=== PATIENT | male | born 1960 | race Caucasian/White ===

== ENCOUNTER 2018-02-20 18:54 | Inpatient (IN) | payer BC ==
--- NOTE | 2018-02-20 19:42 | EDM.PDOC ---
ED HPI GENERAL MEDICAL PROBLEM - General Chief Complaint: Gastrointestinal Problem Stated Complaint: RECTAL BLEEDING Time Seen by Provider: 02/20/18 19:41 Source of Information: Reports: Patient History Limitations: Reports: No Limitations - History of Present Illness INITIAL COMMENTS - FREE TEXT/NARRATIVE: HISTORY AND PHYSICAL: History of present illness: 57-year-old male presenting to the emergency department with chief complaint of bright red blood per rectum 1 day. Patient states that he had some lower abdominal pain last evening around midnight. States that it felt like gas. Then this morning he did have a large bowel movement that was accompanied by a large amount of bright red blood. Bowel movement was not painful. He has had some associated nausea with one episode of vomiting. No blood in vomitus. He has also had diarrhea. Patient states he did have a colonoscopy approximately [address] Virgen. States that they did see some polyps but they were not extracted or worrisome as per Dr. Virgen. Patient has a history of hemorrhoids but states that this is not similar. Patient denies excessive alcohol intake. Patient currently denies any chest pain, palpitations, shortness breath, syncopal episodes, or focal neurologic deficits. -2047 CBC showed mild leukocytosis of 13,000, CMP unremarkable, Hemoccult was positive, H. pylori was positive as well. Lactate unremarkable. Urine and CT abdomen pending. Patient was having significant pain suprapubic. 1 mg IV Dilaudid relieved this. -[address] of the abdomen did show a segmental colitis involving the splenic flexure to the proximal sigmoid colon. It was suggested that it is getting decayed and ischemic colitis or perhaps a segmental infectious colitis. I did call Dr. Lin, on-call surgeon, he breathed on the patient and stated that this is most likely an infectious process and he will consult on the patient tomorrow from medicine. I talked to Dr. Yeung, hospitalist, who accepts the patient. I did start 400 mg of Cipro IV and 500 mg Flagyl IV. Review of systems: As per history of present illness and below otherwise all systems reviewed and negative. Past medical history: As per history of present illness and as reviewed below otherwise noncontributory. Surgical history: As per history of present illness and as reviewed below otherwise noncontributory. Social history: No reported history of drug or alcohol abuse. Family history: As per history of present illness and as reviewed below otherwise noncontributory. Physical exam: HEENT: Atraumatic, normocephalic, pupils reactive, negative for conjunctival pallor or scleral icterus, mucous membranes moist, throat clear, neck supple, nontender, trachea midline. Lungs: Clear to auscultation, breath sounds equal bilaterally, chest nontender. Heart: S1S2, regular, negative for clicks, rubs, or JVD. Abdomen: Soft, nondistended, Tender to palpation suprapubic with no radiation . Negative for masses or hepatosplenomegaly. Negative for costovertebral tenderness. Pelvis: Stable nontender. Genitourinary: Deferred. Rectal: With proctoscope I did visualize some internal hemorrhoids that were not bleeding. There was mild bright red blood in the rectal vault. No abnormal findings on prostate exam. Extremities: Atraumatic, negative for cords or calf pain. Neurovascular unremarkable. Neuro: Awake, alert, oriented. Cranial nerves II through XII unremarkable. Cerebellum unremarkable. Motor and sensory unremarkable throughout. Exam nonfocal. Diagnostics: CBC, CMP, Hemoccult, CT abdomen and pelvis, H. pylori, UA/UC, lactate, blood culture x2 Therapeutics: 1 L normal saline, 80 mg Protonix IV, 1 milligram Dilaudid IV 2 Impression: Suspect infectious colitis Bright red blood per rectum Helicobacter pylori infection Plan: See H&P. Patient was accepted by hospital service Dr. Yeung with Dr. Lin surgery consultation. Of note patient was positive for heel Kobacher pylori as well and will need this treated. Lower Abdominal Pain Score (Numeric/FACES): 3 - Related Data Allergies Allergy/AdvReac Type Severity Reaction Status Date / Time No Known Allergies Allergy Verified 02/20/18 19:09 Home Meds: Home Meds . [No Known Home Meds] 02/20/18 [History] Past Medical History - Infectious Disease History Infectious Disease History: Reports: Chicken Pox, Measles - Past Surgical History Musculoskeletal Surgical History: Reports: Other (See Below) Other Musculoskeletal Surgeries/Procedures:: back Social & Family History - Family History Family Medical History: Noncontributory - Tobacco Use Smoking Status *Q: Former Smoker Used Tobacco, but Quit: Yes Month/Year Tobacco Last Used: 09/1987 - Caffeine Use Caffeine Use: Reports: Coffee - Recreational Drug Use Recreational Drug Use: No ED ROS GENERAL - Review of Systems Review Of Systems: ROS reveals no pertinent complaints other than HPI. ED EXAM, GENERAL - Physical Exam Exam: See Below Course - Vital Signs Last Recorded V/S: Last Vital Signs Temp 99.0 F 02/20/18 19:11 Pulse 65 02/20/18 21:14 Resp 14 02/20/18 21:14 BP 150/82 H 02/20/18 21:14 Pulse Ox 98 02/20/18 21:14 - Orders/Labs/Meds Orders: Active Orders 24 hr Category Date Time Status Abdomen Pelvis w Cont [CT] Stat Exams 02/20/18 19:49 Taken CULTURE BLOOD [BC] Stat Lab 02/20/18 20:27 Received CULTURE BLOOD [BC] Stat Lab 02/20/18 20:46 Received CULTURE URINE [RM] Stat Lab 02/20/18 20:42 Ordered UA W/MICROSCOPIC [URIN] Stat Lab 02/20/18 20:42 Ordered Ciprofloxacin in D5W [Cipro in D5W 400 MG/200 ML] 400 Med 02/20/18 22:00 Ordered mg Premix Bag 1 bag IV Q12H HYDROmorphone [Dilaudid] Med 02/20/18 22:00 Once 1 mg IVPUSH ONETIME ONE metroNIDAZOLE/Normal Saline [Flagyl 500 MG in NS 100 ML Med 02/21/18 00:00 Ordered ] 500 mg Premix Bag 1 bag IV QID Blood Culture x2 Reflex Set [OM.PC] Stat Oth 02/20/18 20:14 Ordered Medication Orders Ciprofloxacin/Dextrose 400 mg/ (Premix) 200 mls @ 200 mls/hr IV Q12H KETURAH Metronidazole 500 mg/ Premix 100 mls @ 100 mls/hr IV QID [facility] Labs: Laboratory Tests 02/20/18 02/20/18 02/20/18 Range/Units 19:58 19:58 19:58 WBC 12.95 H (4.0-11.0) K/uL RBC 5.49 (4.50-5.90) M/uL Hgb 17.2 H (13.0-17.0) g/dL Hct 49.1 (38.0-50.0) % MCV 89.4 (80.0-98.0) fL MCH 31.3 (27.0-32.0) pg MCHC 35.0 (31.0-37.0) g/dL RDW Std Deviation 44.7 (28.0-62.0) fl RDW Coeff of Sia 14 (11.0-15.0) % Plt Count 215 (150-400) K/uL MPV 10.00 (7.40-12.00) fL Neut % (Auto) 80.1 H (48.0-80.0) % Lymph % (Auto) 13.7 L (16.0-40.0) % [place] % (Auto) 6.0 (0.0-15.0) % Eos % (Auto) 0.1 (0.0-7.0) % Baso % (Auto) 0.1 (0.0-1.5) % Neut # (Auto) 10.4 H (1.4-5.7) K/uL Lymph # (Auto) 1.8 (0.6-2.4) K/uL [place] # (Auto) 0.8 (0.0-0.8) K/uL Eos # (Auto) 0.0 (0.0-0.7) K/uL Baso # (Auto) 0.0 (0.0-0.1) K/uL Nucleated RBC % 0.0 /100WBC Nucleated RBCs # 0 K/uL Lactate (0.20-2.00) mmol/L Sodium 138 (136-148) mmol/L Potassium 3.7 (3.5-5.1) mmol/L Chloride 103 (98-107) mmol/L Carbon Dioxide 23.4 (21.0-32.0) mmol/L BUN 19 H (7.0-18.0) mg/dL Creatinine 1.1 (0.8-1.3) mg/dL Est Cr Clr Drug Dosing 72.31 mL/min Estimated GFR (MDRD) > 60.0 ml/min Glucose 128 H (74-106) mg/dL Calcium 9.0 (8.5-10.1) mg/dL Total Bilirubin 0.6 (0.2-1.0) mg/dL AST 17 (15-37) IU/L ALT 36 (14-63) IU/L Alkaline Phosphatase 62 (46-116) U/L Total Protein 7.6 (6.4-8.2) g/dL Albumin 4.0 (3.4-5.0) g/dL Globulin 3.6 H (2.0-3.5) g/dL Albumin/Globulin Ratio 1.1 L (1.3-2.8) Urine Color Urine Appearance Urine pH (5.0-8.0) Ur Specific [place] (1.001-1.035) Urine Protein (NEGATIVE) mg/dL Urine Glucose (UA) (NEGATIVE) mg/dL Urine Ketones (NEGATIVE) mg/dL Urine Occult Blood (NEGATIVE) Urine Nitrite (NEGATIVE) Urine Bilirubin (NEGATIVE) Urine Urobilinogen (<2.0) EU/dL Ur Leukocyte Esterase (NEGATIVE) Urine RBC (0-2/HPF) Urine WBC (0-5/HPF) Ur Epithelial Cells (NONE-FEW) Urine Bacteria (NEGATIVE) Urine Mucus (NONE-MOD) H. pylori IgG Antibody POSITIVE H (NEG) 02/20/18 02/20/18 Range/Units 19:58 20:42 WBC (4.0-11.0) K/uL RBC (4.50-5.90) M/uL Hgb (13.0-17.0) g/dL Hct (38.0-50.0) % MCV (80.0-98.0) fL MCH (27.0-32.0) pg MCHC (31.0-37.0) g/dL RDW Std Deviation (28.0-62.0) fl RDW Coeff of Sia (11.0-15.0) % Plt Count (150-400) K/uL MPV (7.40-12.00) fL Neut % (Auto) (48.0-80.0) % Lymph % (Auto) (16.0-40.0) % [place] % (Auto) (0.0-15.0) % Eos % (Auto) (0.0-7.0) % Baso % (Auto) (0.0-1.5) % Neut # (Auto) (1.4-5.7) K/uL Lymph # (Auto) (0.6-2.4) K/uL [place] # (Auto) (0.0-0.8) K/uL Eos # (Auto) (0.0-0.7) K/uL Baso # (Auto) (0.0-0.1) K/uL Nucleated RBC % /100WBC Nucleated RBCs # K/uL Lactate 1.6 (0.20-2.00) mmol/L Sodium (136-148) mmol/L Potassium (3.5-5.1) mmol/L Chloride (98-107) mmol/L Carbon Dioxide (21.0-32.0) mmol/L BUN (7.0-18.0) mg/dL Creatinine (0.8-1.3) mg/dL Est Cr Clr Drug Dosing mL/min Estimated GFR (MDRD) ml/min Glucose (74-106) mg/dL Calcium (8.5-10.1) mg/dL Total Bilirubin (0.2-1.0) mg/dL AST (15-37) IU/L ALT (14-63) IU/L Alkaline Phosphatase (46-116) U/L Total Protein (6.4-8.2) g/dL Albumin (3.4-5.0) g/dL Globulin (2.0-3.5) g/dL Albumin/Globulin Ratio (1.3-2.8) Urine Color YELLOW Urine Appearance HAZY Urine pH 6.0 (5.0-8.0) Ur Specific [place] >= 1.030 (1.001-1.035) Urine Protein NEGATIVE (NEGATIVE) mg/dL Urine Glucose (UA) NEGATIVE (NEGATIVE) mg/dL Urine Ketones NEGATIVE (NEGATIVE) mg/dL Urine Occult Blood NEGATIVE (NEGATIVE) Urine Nitrite NEGATIVE (NEGATIVE) Urine Bilirubin NEGATIVE (NEGATIVE) Urine Urobilinogen 0.2 (<2.0) EU/dL Ur Leukocyte Esterase NEGATIVE (NEGATIVE) Urine RBC 0-2 (0-2/HPF) Urine WBC 1-2 (0-5/HPF) Ur Epithelial Cells RARE (NONE-FEW) Urine Bacteria FEW (NEGATIVE) Urine Mucus LIGHT (NONE-MOD) H. pylori IgG Antibody (NEG) Meds: Medications Generic Name Dose Route Start Last Admin Trade Name Freq PRN Reason Stop Dose Admin Ciprofloxacin/Dextrose 400 mg/ 200 mls @ 200 mls/hr 02/20/18 22:00 Premix IV Q12H KETURAH Metronidazole 500 mg/ Premix 100 mls @ 100 mls/hr 02/21/18 00:00 IV QID KETURAH Discontinued Medications Generic Name Dose Route Start Last Admin Trade Name Freq PRN Reason Stop Dose Admin Hydromorphone HCl 1 mg 02/20/18 20:14 02/20/18 20:21 Dilaudid IVPUSH 02/20/18 20:15 1 mg ONETIME ONE Administration Sodium Chloride 1,000 mls @ 999 mls/hr 02/20/18 19:51 02/20/18 20:20 Normal Saline IV 02/20/18 20:51 999 mls/hr STAT ONE Administration Iopamidol 200 ml 02/20/18 21:05 02/20/18 21:07 Isovue Multipack-370 (76%) IVPUSH 02/20/18 21:06 100 ml ONETIME STA Administration Pantoprazole Sodium 80 mg 02/20/18 20:05 02/20/18 20:21 Protonix Iv IVPUSH 02/20/18 20:06 80 mg .BOLUS ONE Administration Departure - Departure Time of Disposition: 22:03 Disposition: Admitted As Inpatient 64 Condition: Good Clinical Impression: Colitis, infectious, H. pylori infection - Discharge Information Referrals: PCP,None [Primary Care Provider] - Forms: ED Department Discharge - My Orders Last 24 Hours: My Active Orders 02/20/18 19:49 Abdomen Pelvis w Cont [CT] Stat 02/20/18 20:14 Blood Culture x2 Reflex Set [OM.PC] Stat 02/20/18 20:27 CULTURE BLOOD [BC] Stat 02/20/18 20:42 CULTURE URINE [RM] Stat UA W/MICROSCOPIC [URIN] Stat 02/20/18 20:46 CULTURE BLOOD [BC] Stat 02/20/18 22:00 Ciprofloxacin in D5W [Cipro in D5W 400 MG/200 ML] 400 mg Premix Bag 1 bag IV Q12H HYDROmorphone [Dilaudid] 1 mg IVPUSH ONETIME ONE 02/21/18 00:00 metroNIDAZOLE/Normal Saline [Flagyl 500 MG in NS 100 ML] 500 mg Premix Bag 1 bag IV QID - Assessment/Plan Last 24 Hours: My Active Orders 02/20/18 19:49 Abdomen Pelvis w Cont [CT] Stat 02/20/18 20:14 Blood Culture x2 Reflex Set [OM.PC] Stat 02/20/18 20:27 CULTURE BLOOD [BC] Stat 02/20/18 20:42 CULTURE URINE [RM] Stat UA W/MICROSCOPIC [URIN] Stat 02/20/18 20:46 CULTURE BLOOD [BC] Stat 02/20/18 22:00 Ciprofloxacin in D5W [Cipro in D5W 400 MG/200 ML] 400 mg Premix Bag 1 bag IV Q12H HYDROmorphone [Dilaudid] 1 mg IVPUSH ONETIME ONE 02/21/18 00:00 metroNIDAZOLE/Normal Saline [Flagyl 500 MG in NS 100 ML] 500 mg Premix Bag 1 bag IV QID
[2018-02-20] MEDS ORDERED: Sodium Chloride 0.9% 1,000 ML IV ONE (19:51)
[2018-02-20] MEDS ORDERED: Pantoprazole 40 MG Vial IVPUSH ONE (20:05)
[2018-02-20] MEDS ORDERED: HYDROmorphone 1 MG/ML Syringe IVPUSH ONE ×2 (20:14→22:00)
[2018-02-20 20:26] LABS: CHLORIDE,CL 103 mmol/L (98-107); SODIUM,NA 138 mmol/L (136-148)
[2018-02-20] MEDS ORDERED: Iopamidol 755 MG/ML 200 ML Multipack Bottle IVPUSH STA (21:05)
[2018-02-20] MEDS ORDERED: Ciprofloxacin in D5W 400 MG in Premix Bag 1 BAG IV SCH ×2 (22:00)
[2018-02-20] MEDS ORDERED: Ondansetron 4 MG/2 ML SDV IVPUSH PRN (23:28)
[2018-02-20] MEDS ORDERED: Morphine 10 MG/ML Syringe IVPUSH PRN (23:28)
[2018-02-20] MEDS: metroNIDAZOLE/Normal Saline 500 MG in Premix Bag 1 BAG IV SCH (23:31)
--- NOTE | 2018-02-20 23:33 | PCM.HP ---
H&P History of Present Illness - General Admit Problem/Dx: Admission Diagnosis/Problem Admission Diagnosis/Problem Colitis - History of Present Illness Initial Comments - Free Text/Narative: 57 yo male who presented to the ED with one day history of lower abdominal pain , diarrhea, fevers, chills, and bright red blood per rectum. He also reports nausea and vomiting but no hematemesis. CT of the abdomen did show a segmental colitis involving the splenic flexure to the proximal sigmoid colon. Lower Abdominal Pain Score (Numeric/FACES): 0 - Related Data Allergies/Adverse Reactions: Allergies Allergy/AdvReac Type Severity Reaction Status Date / Time No Known Allergies Allergy Verified 02/20/18 19:09 Home Medications: Home Meds . [No Known Home Meds] 02/20/18 [History] Past Medical History - Infectious Disease History Infectious Disease History: Reports: Chicken Pox, Measles - Past Surgical History Musculoskeletal Surgical History: Reports: Other (See Below) Other Musculoskeletal Surgeries/Procedures:: back Social & Family History - Family History Family Medical History: Noncontributory - Tobacco Use Smoking Status *Q: Former Smoker Used Tobacco, but Quit: Yes Month/Year Tobacco Last Used: 1979 Second Hand Smoke Exposure: No - Caffeine Use Caffeine Use: Reports: None - Recreational Drug Use Recreational Drug Use: No H&P Review of Systems - Review of Systems: Review Of Systems: ROS reveals no pertinent complaints other than HPI. Exam - Exam Exam: See Below - Vital Signs Vital Signs: Last Vital Signs Temp 36.1 C 02/20/18 22:32 Pulse 72 02/20/18 22:32 Resp 17 02/20/18 22:32 BP 146/80 H 02/20/18 22:32 Pulse Ox 97 02/20/18 22:32 Weight: 90.718 kg - Exam General: Alert, Oriented HEENT: Mucosa Moist & [place] Neck: Supple Lungs: Clear to Auscultation, Normal Respiratory Effort Cardiovascular: Regular Rate, Regular Rhythm GI/Abdominal Exam: Normal Bowel Sounds, Soft, Non-Tender, No Distention Extremities: Normal Inspection, Non-Tender, No Pedal Edema Skin: Warm, Dry, Intact - Patient Data Lab Results Last 24 hrs: Laboratory Results - last 24 hr 02/20/18 02/20/18 02/20/18 Range/Units 19:58 19:58 19:58 WBC 12.95 H (4.0-11.0) K/uL RBC 5.49 (4.50-5.90) M/uL Hgb 17.2 H (13.0-17.0) g/dL Hct 49.1 (38.0-50.0) % MCV 89.4 (80.0-98.0) fL MCH 31.3 (27.0-32.0) pg MCHC 35.0 (31.0-37.0) g/dL RDW Std Deviation 44.7 (28.0-62.0) fl RDW Coeff of Sia 14 (11.0-15.0) % Plt Count 215 (150-400) K/uL MPV 10.00 (7.40-12.00) fL Neut % (Auto) 80.1 H (48.0-80.0) % Lymph % (Auto) 13.7 L (16.0-40.0) % [place] % (Auto) 6.0 (0.0-15.0) % Eos % (Auto) 0.1 (0.0-7.0) % Baso % (Auto) 0.1 (0.0-1.5) % Neut # (Auto) 10.4 H (1.4-5.7) K/uL Lymph # (Auto) 1.8 (0.6-2.4) K/uL [place] # (Auto) 0.8 (0.0-0.8) K/uL Eos # (Auto) 0.0 (0.0-0.7) K/uL Baso # (Auto) 0.0 (0.0-0.1) K/uL Nucleated RBC % 0.0 /100WBC Nucleated RBCs # 0 K/uL Lactate (0.20-2.00) mmol/L Sodium 138 (136-148) mmol/L Potassium 3.7 (3.5-5.1) mmol/L Chloride 103 (98-107) mmol/L Carbon Dioxide 23.4 (21.0-32.0) mmol/L BUN 19 H (7.0-18.0) mg/dL Creatinine 1.1 (0.8-1.3) mg/dL Est Cr Clr Drug Dosing 72.31 mL/min Estimated GFR (MDRD) > 60.0 ml/min Glucose 128 H (74-106) mg/dL Calcium 9.0 (8.5-10.1) mg/dL Total Bilirubin 0.6 (0.2-1.0) mg/dL AST 17 (15-37) IU/L ALT 36 (14-63) IU/L Alkaline Phosphatase 62 (46-116) U/L Total Protein 7.6 (6.4-8.2) g/dL Albumin 4.0 (3.4-5.0) g/dL Globulin 3.6 H (2.0-3.5) g/dL Albumin/Globulin Ratio 1.1 L (1.3-2.8) Urine Color Urine Appearance Urine pH (5.0-8.0) Ur Specific [place] (1.001-1.035) Urine Protein (NEGATIVE) mg/dL Urine Glucose (UA) (NEGATIVE) mg/dL Urine Ketones (NEGATIVE) mg/dL Urine Occult Blood (NEGATIVE) Urine Nitrite (NEGATIVE) Urine Bilirubin (NEGATIVE) Urine Urobilinogen (<2.0) EU/dL Ur Leukocyte Esterase (NEGATIVE) Urine RBC (0-2/HPF) Urine WBC (0-5/HPF) Ur Epithelial Cells (NONE-FEW) Urine Bacteria (NEGATIVE) Urine Mucus (NONE-MOD) H. pylori IgG Antibody POSITIVE H (NEG) 02/20/18 02/20/18 Range/Units 19:58 20:42 WBC (4.0-11.0) K/uL RBC (4.50-5.90) M/uL Hgb (13.0-17.0) g/dL Hct (38.0-50.0) % MCV (80.0-98.0) fL MCH (27.0-32.0) pg MCHC (31.0-37.0) g/dL RDW Std Deviation (28.0-62.0) fl RDW Coeff of Sia (11.0-15.0) % Plt Count (150-400) K/uL MPV (7.40-12.00) fL Neut % (Auto) (48.0-80.0) % Lymph % (Auto) (16.0-40.0) % [place] % (Auto) (0.0-15.0) % Eos % (Auto) (0.0-7.0) % Baso % (Auto) (0.0-1.5) % Neut # (Auto) (1.4-5.7) K/uL Lymph # (Auto) (0.6-2.4) K/uL [place] # (Auto) (0.0-0.8) K/uL Eos # (Auto) (0.0-0.7) K/uL Baso # (Auto) (0.0-0.1) K/uL Nucleated RBC % /100WBC Nucleated RBCs # K/uL Lactate 1.6 (0.20-2.00) mmol/L Sodium (136-148) mmol/L Potassium (3.5-5.1) mmol/L Chloride (98-107) mmol/L Carbon Dioxide (21.0-32.0) mmol/L BUN (7.0-18.0) mg/dL Creatinine (0.8-1.3) mg/dL Est Cr Clr Drug Dosing mL/min Estimated GFR (MDRD) ml/min Glucose (74-106) mg/dL Calcium (8.5-10.1) mg/dL Total Bilirubin (0.2-1.0) mg/dL AST (15-37) IU/L ALT (14-63) IU/L Alkaline Phosphatase (46-116) U/L Total Protein (6.4-8.2) g/dL Albumin (3.4-5.0) g/dL Globulin (2.0-3.5) g/dL Albumin/Globulin Ratio (1.3-2.8) Urine Color YELLOW Urine Appearance HAZY Urine pH 6.0 (5.0-8.0) Ur Specific [place] >= 1.030 (1.001-1.035) Urine Protein NEGATIVE (NEGATIVE) mg/dL Urine Glucose (UA) NEGATIVE (NEGATIVE) mg/dL Urine Ketones NEGATIVE (NEGATIVE) mg/dL Urine Occult Blood NEGATIVE (NEGATIVE) Urine Nitrite NEGATIVE (NEGATIVE) Urine Bilirubin NEGATIVE (NEGATIVE) Urine Urobilinogen 0.2 (<2.0) EU/dL Ur Leukocyte Esterase NEGATIVE (NEGATIVE) Urine RBC 0-2 (0-2/HPF) Urine WBC 1-2 (0-5/HPF) Ur Epithelial Cells RARE (NONE-FEW) Urine Bacteria FEW (NEGATIVE) Urine Mucus LIGHT (NONE-MOD) H. pylori IgG Antibody (NEG) Result Diagrams: 02/21/18 05:29 02/21/18 05:29 Problem List Initiated/Reviewed/Updated: Yes Orders Last 24hrs: Active Orders 24 hr Category Date Time Status Admission Status [Patient Status] [ADT] Stat ADT 02/20/18 22:13 Active Oxygen Therapy [RC] PRN Care 02/20/18 23:28 Ordered Up ad Cassia [RC] ASDIRECTED Care 02/20/18 23:28 Ordered VTE/DVT Education [RC] PER UNIT ROUTINE Care 02/20/18 23:28 Ordered Vital Signs [RC] Q4H Care 02/20/18 23:28 Ordered Nothing per Oral Now Diet [DIET] Diet 02/20/18 Breakfast Ordered Abdomen Pelvis w Cont [CT] Stat Exams 02/20/18 19:49 Taken CBC W/O DIFF,HEMOGRAM [HEME] AM Lab 02/21/18 05:11 Ordered COMPREHENSIVE METABOLIC PN,CMP [CHEM] AM Lab 02/21/18 05:11 Ordered CULTURE BLOOD [BC] Stat Lab 02/20/18 20:27 Received CULTURE BLOOD [BC] Stat Lab 02/20/18 20:46 Received CULTURE URINE [RM] Stat Lab 02/20/18 20:42 Ordered UA W/MICROSCOPIC [URIN] Stat Lab 02/20/18 20:42 Ordered Ciprofloxacin in D5W [Cipro in D5W 400 MG/200 ML] 400 Med 02/20/18 22:00 Active mg Premix Bag 1 bag IV Q12H Morphine Med 02/20/18 23:28 Ordered 2 mg IVPUSH Q2H PRN Ondansetron [Zofran] Med 02/20/18 23:28 Ordered 4 mg IVPUSH Q4H PRN Pantoprazole [ProTONIX IV] Med 02/21/18 09:00 Ordered 40 mg IVPUSH DAILY metroNIDAZOLE/Normal Saline [Flagyl 500 MG in NS 100 ML Med 02/21/18 00:00 Active ] 500 mg Premix Bag 1 bag IV QID Blood Culture x2 Reflex Set [OM.PC] Stat Oth 02/20/18 20:14 Ordered Sequential Compression Device [OM.PC] Per Unit Routine Oth 02/20/18 23:28 Ordered Resuscitation Status Routine Resus Stat 02/20/18 23:28 Ordered Medication Orders Ciprofloxacin/Dextrose 400 mg/ (Premix) 200 mls @ 200 mls/hr IV Q12H [facility] Last Admin: 02/20/18 22:16 Dose: 200 mls/hr Metronidazole 500 mg/ Premix 100 mls @ 100 mls/hr IV QID [facility] Pantoprazole Sodium (Protonix Iv) 40 mg IVPUSH DAILY [facility] Assessment/Plan Comment:: 57 yo male admitted with colitis. We will treat with IV fluids, Flagyl and Ciprofloxacin. Stool studies have been ordered.
[2018-02-21] MEDS: Sodium Chloride 0.9% 1,000 ML IV SCH ×3 (01:16→17:05)
[2018-02-21] MEDS: metroNIDAZOLE/Normal Saline 500 MG in Premix Bag 1 BAG IV SCH ×3 (05:17→17:05)
[2018-02-21 06:19] LABS: CHLORIDE,CL 106 mmol/L (98-107); SODIUM,NA 139 mmol/L (136-148)
[2018-02-21] MEDS: Pantoprazole 40 MG Vial IVPUSH SCH (08:15)
[2018-02-21] MEDS: Levofloxacin/Dextrose 5%-Water 500 MG in Premix Bag 1 BAG IV SCH (09:37)
--- NOTE | 2018-02-21 10:16 | PCM.PN ---
- General Info Date of Service: 02/21/18 Admission Dx/Problem (Free Text): 57M admitted for abdominal pain secondary to colitis noted on CT, labs found to be +H.Pylori. This morning, he states that his abdominal pain is intermittent and comes in "waves". He tells me that when the pain occurs, the morphine that he has been receiving has not been adequate. He has had 1 bowel movement since admission, which he says was bloody. Denies any fevers, chills, sob, chest pain. - Review of Systems General: Reports: Other (see HPI) - Patient Data Vitals - Most Recent: Last Vital Signs Temp 36.5 C 02/21/18 08:00 Pulse 70 02/21/18 08:00 Resp 16 02/21/18 08:00 BP 138/65 02/21/18 08:00 Pulse Ox 95 02/21/18 08:00 Weight - Most Recent: 90.718 kg I&O - Last 24 Hours: Intake & Output 02/20/18 02/21/18 02/21/18 22:59 06:59 14:59 Intake Total 100 Balance 100 Lab Results Last 24 Hours: Laboratory Results - last 24 hr 02/20/18 02/20/18 02/20/18 Range/Units 19:58 19:58 19:58 WBC 12.95 H (4.0-11.0) K/uL RBC 5.49 (4.50-5.90) M/uL Hgb 17.2 H (13.0-17.0) g/dL Hct 49.1 (38.0-50.0) % MCV 89.4 (80.0-98.0) fL MCH 31.3 (27.0-32.0) pg MCHC 35.0 (31.0-37.0) g/dL RDW Std Deviation 44.7 (28.0-62.0) fl RDW Coeff of Sia 14 (11.0-15.0) % Plt Count 215 (150-400) K/uL MPV 10.00 (7.40-12.00) fL Neut % (Auto) 80.1 H (48.0-80.0) % Lymph % (Auto) 13.7 L (16.0-40.0) % [place] % (Auto) 6.0 (0.0-15.0) % Eos % (Auto) 0.1 (0.0-7.0) % Baso % (Auto) 0.1 (0.0-1.5) % Neut # (Auto) 10.4 H (1.4-5.7) K/uL Lymph # (Auto) 1.8 (0.6-2.4) K/uL [place] # (Auto) 0.8 (0.0-0.8) K/uL Eos # (Auto) 0.0 (0.0-0.7) K/uL Baso # (Auto) 0.0 (0.0-0.1) K/uL Nucleated RBC % 0.0 /100WBC Nucleated RBCs # 0 K/uL Lactate (0.20-2.00) mmol/L Sodium 138 (136-148) mmol/L Potassium 3.7 (3.5-5.1) mmol/L Chloride 103 (98-107) mmol/L Carbon Dioxide 23.4 (21.0-32.0) mmol/L BUN 19 H (7.0-18.0) mg/dL Creatinine 1.1 (0.8-1.3) mg/dL Est Cr Clr Drug Dosing 72.31 mL/min Estimated GFR (MDRD) > 60.0 ml/min Glucose 128 H (74-106) mg/dL Hemoglobin A1c (4.5-6.2) % Calcium 9.0 (8.5-10.1) mg/dL Total Bilirubin 0.6 (0.2-1.0) mg/dL AST 17 (15-37) IU/L ALT 36 (14-63) IU/L Alkaline Phosphatase 62 (46-116) U/L Total Protein 7.6 (6.4-8.2) g/dL Albumin 4.0 (3.4-5.0) g/dL Globulin 3.6 H (2.0-3.5) g/dL Albumin/Globulin Ratio 1.1 L (1.3-2.8) Urine Color Urine Appearance Urine pH (5.0-8.0) Ur Specific [place] (1.001-1.035) Urine Protein (NEGATIVE) mg/dL Urine Glucose (UA) (NEGATIVE) mg/dL Urine Ketones (NEGATIVE) mg/dL Urine Occult Blood (NEGATIVE) Urine Nitrite (NEGATIVE) Urine Bilirubin (NEGATIVE) Urine Urobilinogen (<2.0) EU/dL Ur Leukocyte Esterase (NEGATIVE) Urine RBC (0-2/HPF) Urine WBC (0-5/HPF) Ur Epithelial Cells (NONE-FEW) Urine Bacteria (NEGATIVE) Urine Mucus (NONE-MOD) H. pylori IgG Antibody POSITIVE H (NEG) 02/20/18 02/20/18 02/21/18 Range/Units 19:58 20:42 05:28 WBC (4.0-11.0) K/uL RBC (4.50-5.90) M/uL Hgb (13.0-17.0) g/dL Hct (38.0-50.0) % MCV (80.0-98.0) fL MCH (27.0-32.0) pg MCHC (31.0-37.0) g/dL RDW Std Deviation (28.0-62.0) fl RDW Coeff of Sia (11.0-15.0) % Plt Count (150-400) K/uL MPV (7.40-12.00) fL Neut % (Auto) (48.0-80.0) % Lymph % (Auto) (16.0-40.0) % [place] % (Auto) (0.0-15.0) % Eos % (Auto) (0.0-7.0) % Baso % (Auto) (0.0-1.5) % Neut # (Auto) (1.4-5.7) K/uL Lymph # (Auto) (0.6-2.4) K/uL [place] # (Auto) (0.0-0.8) K/uL Eos # (Auto) (0.0-0.7) K/uL Baso # (Auto) (0.0-0.1) K/uL Nucleated RBC % /100WBC Nucleated RBCs # K/uL Lactate 1.6 (0.20-2.00) mmol/L Sodium (136-148) mmol/L Potassium (3.5-5.1) mmol/L Chloride (98-107) mmol/L Carbon Dioxide (21.0-32.0) mmol/L BUN (7.0-18.0) mg/dL Creatinine (0.8-1.3) mg/dL Est Cr Clr Drug Dosing mL/min Estimated GFR (MDRD) ml/min Glucose (74-106) mg/dL Hemoglobin A1c 5.7 (4.5-6.2) % Calcium (8.5-10.1) mg/dL Total Bilirubin (0.2-1.0) mg/dL AST (15-37) IU/L ALT (14-63) IU/L Alkaline Phosphatase (46-116) U/L Total Protein (6.4-8.2) g/dL Albumin (3.4-5.0) g/dL Globulin (2.0-3.5) g/dL Albumin/Globulin Ratio (1.3-2.8) Urine Color YELLOW Urine Appearance HAZY Urine pH 6.0 (5.0-8.0) Ur Specific [place] >= 1.030 (1.001-1.035) Urine Protein NEGATIVE (NEGATIVE) mg/dL Urine Glucose (UA) NEGATIVE (NEGATIVE) mg/dL Urine Ketones NEGATIVE (NEGATIVE) mg/dL Urine Occult Blood NEGATIVE (NEGATIVE) Urine Nitrite NEGATIVE (NEGATIVE) Urine Bilirubin NEGATIVE (NEGATIVE) Urine Urobilinogen 0.2 (<2.0) EU/dL Ur Leukocyte Esterase NEGATIVE (NEGATIVE) Urine RBC 0-2 (0-2/HPF) Urine WBC 1-2 (0-5/HPF) Ur Epithelial Cells RARE (NONE-FEW) Urine Bacteria FEW (NEGATIVE) Urine Mucus LIGHT (NONE-MOD) H. pylori IgG Antibody (NEG) 02/21/18 02/21/18 Range/Units 05:29 05:29 WBC 11.22 H (4.0-11.0) K/uL RBC 4.95 (4.50-5.90) M/uL Hgb 14.9 (13.0-17.0) g/dL Hct 44.8 (38.0-50.0) % MCV 90.5 (80.0-98.0) fL MCH 30.1 (27.0-32.0) pg MCHC 33.3 (31.0-37.0) g/dL RDW Std Deviation 45.8 (28.0-62.0) fl RDW Coeff of Sia 14 (11.0-15.0) % Plt Count 197 (150-400) K/uL MPV 10.40 (7.40-12.00) fL Neut % (Auto) (48.0-80.0) % Lymph % (Auto) (16.0-40.0) % [place] % (Auto) (0.0-15.0) % Eos % (Auto) (0.0-7.0) % Baso % (Auto) (0.0-1.5) % Neut # (Auto) (1.4-5.7) K/uL Lymph # (Auto) (0.6-2.4) K/uL [place] # (Auto) (0.0-0.8) K/uL Eos # (Auto) (0.0-0.7) K/uL Baso # (Auto) (0.0-0.1) K/uL Nucleated RBC % 0.0 /100WBC Nucleated RBCs # 0 K/uL Lactate (0.20-2.00) mmol/L Sodium 139 (136-148) mmol/L Potassium 3.8 (3.5-5.1) mmol/L Chloride 106 (98-107) mmol/L Carbon Dioxide 25.7 (21.0-32.0) mmol/L BUN 16 (7.0-18.0) mg/dL Creatinine 1.1 (0.8-1.3) mg/dL Est Cr Clr Drug Dosing 72.31 mL/min Estimated GFR (MDRD) > 60.0 ml/min Glucose 115 H (74-106) mg/dL Hemoglobin A1c (4.5-6.2) % Calcium 8.0 L (8.5-10.1) mg/dL Total Bilirubin 0.8 (0.2-1.0) mg/dL AST 14 L (15-37) IU/L ALT 27 (14-63) IU/L Alkaline Phosphatase 51 (46-116) U/L Total Protein 6.2 L (6.4-8.2) g/dL Albumin 3.2 L (3.4-5.0) g/dL Globulin 3.0 (2.0-3.5) g/dL Albumin/Globulin Ratio 1.1 L (1.3-2.8) Urine Color Urine Appearance Urine pH (5.0-8.0) Ur Specific [place] (1.001-1.035) Urine Protein (NEGATIVE) mg/dL Urine Glucose (UA) (NEGATIVE) mg/dL Urine Ketones (NEGATIVE) mg/dL Urine Occult Blood (NEGATIVE) Urine Nitrite (NEGATIVE) Urine Bilirubin (NEGATIVE) Urine Urobilinogen (<2.0) EU/dL Ur Leukocyte Esterase (NEGATIVE) Urine RBC (0-2/HPF) Urine WBC (0-5/HPF) Ur Epithelial Cells (NONE-FEW) Urine Bacteria (NEGATIVE) Urine Mucus (NONE-MOD) H. pylori IgG Antibody (NEG) Cristian Results Last 24 Hours: Microbiology 02/21/18 01:00 Clostridium difficile Toxin A & B - Final Stool / Feces Negative for C.Diff Toxin/AG Stool for WBCs - Final POSITIVE FOR WBC'S 02/21/18 01:00 Campylobacter Antigen Assay - Final Stool / Feces NEGATIVE [facility]AMPYLOBACTER AG Med Orders - Current: Current Medications Hydromorphone HCl (Dilaudid) 1 mg IVPUSH Q6H PRN PRN Reason: Pain Metronidazole 500 mg/ Premix 100 mls @ 100 mls/hr IV QID REPLACED BY [facility] Last Admin: 02/21/18 05:17 Dose: 100 mls/hr Sodium Chloride (Normal Saline) 1,000 mls @ 150 mls/hr IV ASDIRECTED REPLACED BY [facility] Last Admin: 02/21/18 08:04 Dose: 150 mls/hr Levofloxacin/Dextrose 500 mg/ (Premix) 100 mls @ 100 mls/hr IV Q24H REPLACED BY [facility] Last Admin: 02/21/18 09:37 Dose: 100 mls/hr Morphine Sulfate (Morphine) 2 mg IVPUSH Q2H PRN PRN Reason: Pain (severe 7-10) Stop: 02/21/18 23:28 Last Admin: 02/21/18 05:24 Dose: 2 mg Ondansetron HCl (Zofran) 4 mg IVPUSH Q4H PRN PRN Reason: Nausea Pantoprazole Sodium (Protonix Iv) 40 mg IVPUSH DAILY REPLACED BY [facility] Last Admin: 02/21/18 08:15 Dose: 40 mg Discontinued Medications Hydromorphone HCl (Dilaudid) 1 mg IVPUSH ONETIME ONE Stop: 02/20/18 20:15 Last Admin: 02/20/18 20:21 Dose: 1 mg Hydromorphone HCl (Dilaudid) 1 mg IVPUSH ONETIME ONE Stop: 02/20/18 22:01 Last Admin: 02/20/18 22:16 Dose: 1 mg Sodium Chloride (Normal Saline) 1,000 mls @ 999 mls/hr IV STAT ONE Stop: 02/20/18 20:51 Last Admin: 02/20/18 20:20 Dose: 999 mls/hr Ciprofloxacin/Dextrose 400 mg/ (Premix) 200 mls @ 200 mls/hr IV Q12H [facility] Last Admin: 02/20/18 22:16 Dose: 200 mls/hr Iopamidol (Isovue Multipack-370 (76%)) 200 ml IVPUSH ONETIME STA Stop: 02/20/18 21:06 Last Admin: 02/20/18 21:07 Dose: 100 ml Pantoprazole Sodium (Protonix Iv) 80 mg IVPUSH .BOLUS ONE Stop: 02/20/18 20:06 Last Admin: 02/20/18 20:21 Dose: 80 mg - Exam General: Alert, Oriented HEENT: Pupils Equal, Pupils Reactive, EOMI, Mucous Membr. Moist/[place] Neck: Supple Lungs: Clear to Auscultation, Normal Respiratory Effort Cardiovascular: Regular Rate, Regular Rhythm GI/Abdominal Exam: Normal Bowel Sounds, Soft, No Organomegaly, No Distention, No Abnormal Bruit, No Mass, Pelvis Stable, Tender (mild tenderness to palpation below the umbilicus. ). No: Rebound, Other (rectal exam negative for hemorrhoids) Back Exam: Normal Inspection, Full Range of Motion Extremities: Normal Inspection, Normal Range of Motion, Non-Tender, No Pedal Edema, Normal Capillary Refill Neurological: No New Focal Deficit Psy/Mental Status: Alert, Normal Affect, Normal Mood - Problem List Review Problem List Initiated/Reviewed/Updated: Yes - My Orders Last 24 Hours: My Active Orders 02/21/18 09:46 HYDROmorphone [Dilaudid] 1 mg IVPUSH Q6H PRN 02/22/18 05:11 GLYCOSYLATED HEMOGLOBIN,HGBA1C [CHEM] AM - Plan Plan:: A: #1. Colitis #2. +H. Pylori #3. Abdominal pain secondary to #1 #4. Mild leukocytosis #5. Abnormal glucose P: #1. For antibiotics, will be switched from ciprofloxacin to levaquin. Continue flagyl. This is to cover for both colitis and ongoing H. Pylori infection. At discharge, he will need to go home on a triple therapy regimen for H. Pylori #2. Dilaudid 1mg IV q6h PRN for pain beyond control from morphine #3. HgbA1c unremarkable
[2018-02-21] MEDS: HYDROmorphone 1 MG/ML Syringe IVPUSH PRN ×2 (11:30→17:04)
--- NOTE | 2018-02-21 15:21 | CT ---
EXAM DATE: 02/20/18 PATIENT'S AGE: 57 Patient: CATARINO RODRÍGUEZ Facility: [facility], [place], [place] Site . Site : 1960 Study: CT Abdomen/Pelvis WITH [id number]/3/2018 9:08:46 PM Ordering Physician: Charles Chamorro Final Report: INDICATION: General abdominal pain, nausea and vomiting. FINDINGS: CT images demonstrate a normal appearance of the lung bases. The liver and spleen demonstrate normal size and uniform enhancement. There is no evidence of inflammation or mass within the pancreas or stomach. The gallbladder and bile ducts appear normal. There is a 4.5 cm cyst projecting off the lower pole left kidney and a smaller 2 cm cyst within the upper pole right kidney. There is no evidence of calculus or hydronephrosis. Atherosclerotic changes are noted within the aorta but there is no evidence of aneurysm or vascular dissection. The small bowel loops appear normal. There is circumferential mural edema and periserosal fat stranding extending from the splenic flexure to the proximal sigmoid colon. The radiographic distribution would raise a concern for ischemic colitis. There are a few diverticula within the sigmoid colon but no evidence of diverticulitis. The right colon appears normal. The urinary bladder is contracted. The prostate gland is of normal size. IMPRESSION: Segmental colitis identified involving the splenic flexure to the proximal sigmoid colon. Findings could indicate ischemic colitis or perhaps a segmental infectious colitis. Please note that all CT scans at this facility use dose modulation, iterative reconstruction, and/or weight-based dosing when appropriate to reduce radiation dose to as low as reasonably achievable. Dictated by Yong Au MD @ Feb 20 2018 9:23PM (Electronic Signature) Report Signed by Proxy. LIZBETH
[2018-02-21] MEDS ORDERED: Acetaminophen 325 MG Tab ONE (23:41)
[2018-02-22] MEDS ORDERED: Acetaminophen 325 MG Tab PO PRN (00:48)
[2018-02-22] MEDS: metroNIDAZOLE/Normal Saline 500 MG in Premix Bag 1 BAG IV SCH ×2 (01:25→06:01)
[2018-02-22] MEDS: Sodium Chloride 0.9% 1,000 ML IV SCH (01:52)
[2018-02-22 07:43] LABS: CHLORIDE,CL 107 mmol/L (98-107); SODIUM,NA 140 mmol/L (136-148)
[2018-02-22] MEDS: Pantoprazole 40 MG Vial IVPUSH SCH (08:57)
[2018-02-22] MEDS: Levofloxacin/Dextrose 5%-Water 500 MG in Premix Bag 1 BAG IV SCH (08:57)
--- NOTE | 2018-02-22 10:01 | PCM.DCSUM1 ---
<Jose Antonio Milligan - Last Filed: 02/22/18 09:56> Discharge Summary - Hospital Course Free Text/Narrative:: Admission date: 02/20/2018 Discharge date: 02/22/2018 Admission diagnosis: #1. Segmental colitis at the splenic flexure #2. bright red blood per rectum #3. + H.Pylori #4. Abdominal pain secondary to #1 Discharge diagnosis: #1. Segmental colitis - clinically improving #2. bright red blood per rectum - persistent without anemia or symptoms #3. + H. Pylori #4. Abdominal pain resolved Hospital course: 57M with history as above presented with the above mentioned complaints to the ER on 02/20/18. On CT scan, he was found to have colitis by the splenic flexure. He was then admitted to the floor for IV antibiotics, kept NPO, and pain management. Patients pain was adequately tolerated. His diet was advanced as tolerated. He continues to have reported bright red blood per rectum. He was started on IV ciprofloxacin+flagyl. Was then switched from ciprofloxacin to levaquin to cover for H. Pylori. He tells me that he has had a colonoscopy in the past which was unremarkable. At the time of discharge, he was tolerated PO well, no abdominal pain. He was sent home on 12 days of PO Levaquin, Flagyl, PPI to treat for colitis, h. pylori. He is to f/u with primary care, Dr. Milligan this week, and will need to see surgery as well for colonoscopy. - Discharge Data Discharge Date: 02/22/18 Discharge Disposition: Home, Self-Care 01 Condition: Good - Patient Instructions Diet: Usual Diet as Tolerated Activity: As Tolerated Driving: May Drive Today Showering/Bathing: May Shower Notify Provider of: Fever, Increased Pain, Swelling and Redness, Drainage, Nausea and/or Vomiting - Discharge Plan Prescriptions/Med Rec: Levofloxacin [Levaquin] 500 mg PO Q24H 12 Days #12 tab metroNIDAZOLE [Flagyl] 500 mg PO TID 12 Days #36 tablet Pantoprazole Sodium [Protonix] 40 mg PO DAILY 12 Days #12 tablet. Home Medications: Home Meds Levofloxacin [Levaquin] 500 mg PO Q24H 12 Days #12 tab 02/22/18 [Rx] Pantoprazole Sodium [Protonix] 40 mg PO DAILY 12 Days #12 tablet. 02/22/18 [Rx ] metroNIDAZOLE [Flagyl] 500 mg PO TID 12 Days #36 tablet 02/22/18 [Rx] Patient Handouts: Pantoprazole tablets, Levofloxacin tablets, Colitis, Metronidazole tablets or capsules Referrals: [facility] [Outside] Elizabeth Rodas MD [Physician] - 02/24/18 1:30 pm Jose Antonio Milligan MD [Resident] - 02/24/18 3:15 pm - Discharge Summary/Plan Comment Discharge Summary/Plan Comment: Admission date: 02/20/2018 Discharge date: 02/22/2018 Admission diagnosis: #1. Segmental colitis at the splenic flexure #2. bright red blood per rectum #3. + H.Pylori #4. Abdominal pain secondary to #1 Discharge diagnosis: #1. Segmental colitis - clinically improving #2. bright red blood per rectum - persistent without anemia or symptoms #3. + H. Pylori #4. Abdominal pain resolved Hospital course: 57M with history as above presented with the above mentioned complaints to the ER on 02/20/18. On CT scan, he was found to have colitis by the splenic flexure. He was then admitted to the floor for IV antibiotics, kept NPO, and pain management. Patients pain was adequately tolerated. His diet was advanced as tolerated. He continues to have reported bright red blood per rectum. He was started on IV ciprofloxacin+flagyl. Was then switched from ciprofloxacin to levaquin to cover for H. Pylori. He tells me that he has had a colonoscopy in the past which was unremarkable. At the time of discharge, he was tolerated PO well, no abdominal pain. He was sent home on 12 days of PO Levaquin, Flagyl, PPI to treat for colitis, h. pylori. He is to f/u with primary care, Dr. Milligan this week, and will need to see surgery as well for colonoscopy. - Patient Data Vitals - Most Recent: Last Vital Signs Temp 36.2 C 02/22/18 08:00 Pulse 77 02/22/18 08:00 Resp 16 02/22/18 08:00 BP 141/74 H 02/22/18 08:00 Pulse Ox 95 02/22/18 08:00 Weight - Most Recent: 90.718 kg I&O - Last 24 hours: Intake & Output 06/01/0502/22/18 02/22/18 22:59 06:59 14:59 Intake Total 2330 2900 100 Output Total 2250 Balance 2330 650 100 Lab Results - Last 24 hrs: Laboratory Results - last 24 hr 02/22/18 02/22/18 Range/Units 06:30 06:30 WBC 11.67 H (4.0-11.0) K/uL RBC 4.66 (4.50-5.90) M/uL Hgb 13.8 (13.0-17.0) g/dL Hct 42.4 (38.0-50.0) % MCV 91.0 (80.0-98.0) fL MCH 29.6 (27.0-32.0) pg MCHC 32.5 (31.0-37.0) g/dL RDW Std Deviation 46.5 (28.0-62.0) fl RDW Coeff of Sia 14 (11.0-15.0) % Plt Count 187 (150-400) K/uL MPV 10.00 (7.40-12.00) fL Neut % (Auto) 73.5 (48.0-80.0) % Lymph % (Auto) 18.6 (16.0-40.0) % [place] % (Auto) 7.3 (0.0-15.0) % Eos % (Auto) 0.4 (0.0-7.0) % Baso % (Auto) 0.2 (0.0-1.5) % Neut # (Auto) 8.6 H (1.4-5.7) K/uL Lymph # (Auto) 2.2 (0.6-2.4) K/uL [place] # (Auto) 0.9 H (0.0-0.8) K/uL Eos # (Auto) 0.1 (0.0-0.7) K/uL Baso # (Auto) 0.0 (0.0-0.1) K/uL Nucleated RBC % 0.0 /100WBC Nucleated RBCs # 0 K/uL Sodium 140 (136-148) mmol/L Potassium 3.6 (3.5-5.1) mmol/L Chloride 107 (98-107) mmol/L Carbon Dioxide 23.7 (21.0-32.0) mmol/L BUN 12 (7.0-18.0) mg/dL Creatinine 1.0 (0.8-1.3) mg/dL Est Cr Clr Drug Dosing 79.54 mL/min Estimated GFR (MDRD) > 60.0 ml/min Glucose 98 (74-106) mg/dL Calcium 8.3 L (8.5-10.1) mg/dL ROM Results - Last 24 hrs: Microbiology 02/20/18 20:42 Urine Culture - Final Urine, Clean Catch MIXED AIME 10,000-100,000 CFU/ML 02/21/18 01:00 Campylobacter Antigen Assay - Final Stool / Feces NEGATIVE CAMPYLOBACTER AG - Final NEGATIVE FOR SHIGA TOXIN 1 - Final NEGATIVE FOR SHIGA TOXIN 2 02/20/18 20:46 Aerobic Blood Culture - Preliminary Blood - Venous - Lab Draw NO GROWTH AFTER 1 DAY Anaerobic Blood Culture - Preliminary NO GROWTH AFTER 1 DAY 02/20/18 20:27 Aerobic Blood Culture - Preliminary Blood - Venous NO GROWTH AFTER 1 DAY Anaerobic Blood Culture - Preliminary NO GROWTH AFTER 1 DAY 02/21/18 01:00 Clostridium difficile Toxin A & B - Final Stool / Feces Negative for C.Diff Toxin/AG Stool for WBCs - Final POSITIVE FOR WBC'S Med Orders - Current: Current Medications Acetaminophen (Tylenol) 650 mg PO Q4H PRN PRN Reason: Headache Last Admin: 02/22/18 09:06 Dose: 650 mg Hydromorphone HCl (Dilaudid) 1 mg IVPUSH Q6H PRN PRN Reason: Pain Last Admin: 02/21/18 17:04 Dose: 1 mg Metronidazole 500 mg/ Premix 100 mls @ 100 mls/hr IV QID [facility] Last Admin: 02/22/18 06:01 Dose: 100 mls/hr Sodium Chloride (Normal Saline) 1,000 mls @ 150 mls/hr IV ASDIRECTED [facility] Last Admin: 02/22/18 01:52 Dose: 150 mls/hr Levofloxacin/Dextrose 500 mg/ (Premix) 100 mls @ 100 mls/hr IV Q24H [facility] Last Admin: 02/22/18 08:57 Dose: 100 mls/hr Ondansetron HCl (Zofran) 4 mg IVPUSH Q4H PRN PRN Reason: Nausea Pantoprazole Sodium (Protonix Iv) 40 mg IVPUSH DAILY [facility] Last Admin: 02/22/18 08:57 Dose: 40 mg Discontinued Medications Acetaminophen (Tylenol) Confirm Administered Dose 650 mg .ROUTE .STK-MED ONE Stop: 02/21/18 23:42 Last Admin: 02/22/18 01:25 Dose: Not Given Hydromorphone HCl (Dilaudid) 1 mg IVPUSH ONETIME ONE Stop: 02/20/18 20:15 Last Admin: 02/20/18 20:21 Dose: 1 mg Hydromorphone HCl (Dilaudid) 1 mg IVPUSH ONETIME ONE Stop: 02/20/18 22:01 Last Admin: 02/20/18 22:16 Dose: 1 mg Sodium Chloride (Normal Saline) 1,000 mls @ 999 mls/hr IV STAT ONE Stop: 02/20/18 20:51 Last Admin: 02/20/18 20:20 Dose: 999 mls/hr Ciprofloxacin/Dextrose 400 mg/ (Premix) 200 mls @ 200 mls/hr IV Q12H [facility] Last Admin: 02/20/18 22:16 Dose: 200 mls/hr Iopamidol (Isovue Multipack-370 (76%)) 200 ml IVPUSH ONETIME STA Stop: 02/20/18 21:06 Last Admin: 02/20/18 21:07 Dose: 100 ml Morphine Sulfate (Morphine) 2 mg IVPUSH Q2H PRN PRN Reason: Pain (severe 7-10) Stop: 02/21/18 23:28 Last Admin: 02/21/18 05:24 Dose: 2 mg Pantoprazole Sodium (Protonix Iv) 80 mg IVPUSH .BOLUS ONE Stop: 02/20/18 20:06 Last Admin: 02/20/18 20:21 Dose: 80 mg <Leonardo Yeung J - Last Filed: 03/02/18 11:16> - Patient Data Vitals - Most Recent: Last Vital Signs Temp 36.2 C 02/22/18 08:00 Pulse 77 02/22/18 08:00 Resp 16 02/22/18 08:00 BP 141/74 H 02/22/18 08:00 Pulse Ox 95 02/22/18 08:00 Med Orders - Current: Current Medications Discontinued Medications Acetaminophen (Tylenol) Confirm Administered Dose 650 mg .ROUTE .STK-MED ONE Stop: 02/21/18 23:42 Last Admin: 02/22/18 01:25 Dose: Not Given Acetaminophen (Tylenol) 650 mg PO Q4H PRN PRN Reason: Headache Last Admin: 02/22/18 09:06 Dose: 650 mg Hydromorphone HCl (Dilaudid) 1 mg IVPUSH ONETIME ONE Stop: 02/20/18 20:15 Last Admin: 02/20/18 20:21 Dose: 1 mg Hydromorphone HCl (Dilaudid) 1 mg IVPUSH ONETIME ONE Stop: 02/20/18 22:01 Last Admin: 02/20/18 22:16 Dose: 1 mg Hydromorphone HCl (Dilaudid) 1 mg IVPUSH Q6H PRN PRN Reason: Pain Last Admin: 02/21/18 17:04 Dose: 1 mg Sodium Chloride (Normal Saline) 1,000 mls @ 999 mls/hr IV STAT ONE Stop: 02/20/18 20:51 Last Admin: 02/20/18 20:20 Dose: 999 mls/hr Ciprofloxacin/Dextrose 400 mg/ (Premix) 200 mls @ 200 mls/hr IV Q12H [facility] Last Admin: 02/20/18 22:16 Dose: 200 mls/hr Metronidazole 500 mg/ Premix 100 mls @ 100 mls/hr IV QID [facility] Last Admin: 02/22/18 06:01 Dose: 100 mls/hr Sodium Chloride (Normal Saline) 1,000 mls @ 150 mls/hr IV ASDIRECTED [facility] Last Admin: 02/22/18 01:52 Dose: 150 mls/hr Levofloxacin/Dextrose 500 mg/ (Premix) 100 mls @ 100 mls/hr IV Q24H [facility] Last Admin: 02/22/18 08:57 Dose: 100 mls/hr Iopamidol (Isovue Multipack-370 (76%)) 200 ml IVPUSH ONETIME STA Stop: 02/20/18 21:06 Last Admin: 02/20/18 21:07 Dose: 100 ml Morphine Sulfate (Morphine) 2 mg IVPUSH Q2H PRN PRN Reason: Pain (severe 7-10) Stop: 02/21/18 23:28 Last Admin: 02/21/18 05:24 Dose: 2 mg Ondansetron HCl (Zofran) 4 mg IVPUSH Q4H PRN PRN Reason: Nausea Pantoprazole Sodium (Protonix Iv) 80 mg IVPUSH .BOLUS ONE Stop: 02/20/18 20:06 Last Admin: 02/20/18 20:21 Dose: 80 mg Pantoprazole Sodium (Protonix Iv) 40 mg IVPUSH DAILY [facility] Last Admin: 02/22/18 08:57 Dose: 40 mg - Free Text/Narrative Note: I have examined the patient. I have discussed treatment plan with the resident. I agree with the assessment and plan outlined in the following resident's note.
== END 2018-02-22 11:20 | disposition home or self-care (01) | DRG 248 ==
LOC: MW.ED 18:54 → MW.MS 22:20
PROVIDERS: ADMIT Internal Medicine; ATTEND Internal Medicine
DX: A04.5 Campylobacter enteritis (principal); K62.5 Hemorrhage of anus and rectum; R73.09 Other abnormal glucose; D72.829 Elevated white blood cell count, unspecified; Z87.891 Personal history of nicotine dependence
CPT/HCPCS: 36415; 74177; 74177-26; 80048; 80053; 81001; 83036; 83605; 83630; 85025; 85027; 86677; 87040; 87046; 87086; 87324; 87899; 96361; 96374; 96375; 99284; 99285-25; A9270-GY; C9113; J0744; J1170; J1956; J2270; J7040; Q9967

== ENCOUNTER 2018-04-12 08:18 | Day surgery (SDC) | payer BC ==
[~2018-04-12 08:18] MED LIST: Lactated Ringers 1,000 ML IV SCH; Sodium Chloride 0.9% 10 ML Syringe FLUSH PRN; Sodium Chloride 0.9% 2.5 ML Syringe FLUSH PRN
[2018-04-12] MEDS ORDERED: Lidocaine 2% 5 ML SDV ONE (09:01)
[2018-04-12] MEDS ORDERED: Propofol 200 MG/20 ML SDV ONE (09:01)
[2018-04-12] MEDS ORDERED: fentaNYL 100 MCG/2 ML SDV ONE (09:02)
[2018-04-12] MEDS ORDERED: Midazolam 1 MG/ML 2 ML SDV ONE (09:02)
--- NOTE | 2018-04-12 09:13 | PCM.PREANE ---
Preanesthetic Assessment - Procedure Proposed Procedure: EGD and Colonoscopy - Anesthesia/Transfusion/Family Hx Anesthesia History: Prior Anesthesia Without Reaction Family History of Anesthesia Reaction: No Transfusion History: No Prior Transfusion(s) Intubation History: Unknown - Review of Systems General: No Symptoms Pulmonary: No Symptoms Cardiovascular: No Symptoms Gastrointestinal: Other (s/p infectious coloitis with hospitalization few weeks ago) Neurological: No Symptoms Other: Reports: None - Physical Assessment NPO Status Date: 04/11/18 NPO Status Time: 21:00 O2 Sat by Pulse Oximetry: 95 Respiratory Rate: 16 Vital Signs: Last Vital Signs Temp 97.7 F 04/12/18 09:05 Pulse 54 L 04/12/18 09:05 Resp 16 04/12/18 09:05 BP 116/63 04/12/18 09:05 Pulse Ox 95 04/12/18 09:05 Height: 5 ft 9 in Weight: 197 lb ASA Class: 2 Mental Status: Alert & Oriented x3 Airway Class: Mallampati = 2 Dentition: Reports: Bridge (permanent lower frontal bridge partial) Thyro-Mental Finger Breadths: 3 Mouth Opening Finger Breadths: 3 (wide mouth) ROM/Head Extension: Limited/Partial Lungs: Clear to Auscultation, Normal Respiratory Effort Cardiovascular: Regular Rate, Regular Rhythm, No Murmurs - Allergies Allergies/Adverse Reactions: Allergies Allergy/AdvReac Type Severity Reaction Status Date / Time No Known Allergies Allergy Verified 04/08/18 08:44 - Blood Blood Available: No Product(s) Available: None - Anesthesia Plan Pre-Op Medication Ordered: None - Acknowledgements Anesthesia Type Planned: MAC Pt an Appropriate Candidate for the Planned Anesthesia: Yes Alternatives and Risks of Anesthesia Discussed w Pt/Guardian: Yes Pt/Guardian Understands and Agrees with Anesthesia Plan: Yes PreAnesthesia Questionnaire HEENT History: Reports: Other (See Below) Other HEENT History: has lower partial permanent denture Gastrointestinal History: Reports: GERD, Irritable Bowel Syndrome, Other (See Below) Other Gastrointestinal History: hx of H-Pylori - Infectious Disease History Infectious Disease History: Reports: Chicken Pox, Measles - Past Surgical History HEENT Surgical History: Reports: Naso-Sinus Surgery Male Surgical History: Reports: Vasectomy Neurological Surgical History: Reports: Discectomy, Lumbar Spine Musculoskeletal Surgical History: Reports: Other (See Below) Other Musculoskeletal Surgeries/Procedures:: back - SUBSTANCE USE Smoking Status *Q: Former Smoker Tobacco Use Within Last Twelve Months: No Recreational Drug Use History: No - HOME MEDS Home Medications: Home Meds . [No Known Home Meds] 04/08/18 [History] - CURRENT (IN HOUSE) MEDS Current Meds: Current Medications Lactated Ringer's (Ringers, Lactated) 1,000 mls @ 125 mls/hr IV ASDIRECTED KETURAH Last Admin: 04/12/18 08:45 Dose: 125 mls/hr Sodium Chloride (Saline Flush) 10 ml FLUSH ASDIRECTED PRN PRN Reason: Keep Vein Open Sodium Chloride (Saline Flush) 2.5 ml FLUSH ASDIRECTED PRN PRN Reason: Keep Vein Open Sodium Chloride (Saline Flush) 10 ml FLUSH ASDIRECTED PRN PRN Reason: Keep Vein Open Sodium Chloride (Saline Flush) 2.5 ml FLUSH ASDIRECTED PRN PRN Reason: Keep Vein Open Discontinued Medications Fentanyl (Sublimaze) Confirm Administered Dose 100 mcg .ROUTE .STK-MED ONE Stop: 04/12/18 09:03 Lidocaine (Xylocaine-Mpf 2%) Confirm Administered Dose 10 ml .ROUTE .STK-MED ONE Stop: 04/12/18 09:02 Midazolam HCl (Versed 1 Mg/Ml) Confirm Administered Dose 2 mg .ROUTE .STK-MED ONE Stop: 04/12/18 09:03 Propofol (Diprivan 20 Ml) Confirm Administered Dose 400 mg .ROUTE .STK-MED ONE Stop: 04/12/18 09:02
--- NOTE | 2018-04-12 09:53 | PCM.OPNOTE ---
- General Post-Op/Procedure Note Date of Surgery/Procedure: 04/12/18 Operative Procedure(s): Diagnostic EGD and colonoscopy Findings: Gastritis, duodenitis, diverticulosis, hepatic flexure and sigmoid colon polyps Pre Op Diagnosis: Reflux, colitis Post-Op Diagnosis: Gastritis, duodenitis, diverticulosis, hepatic flexure and sigmoid colon polyps [place] [facility] [place]geon: Elizabeth Rodas Condition: Good
--- NOTE | 2018-04-12 10:18 | PCM.POSTAN ---
POST ANESTHESIA ASSESSMENT - MENTAL STATUS Mental Status: Alert, Oriented - RESPIRATORY Respiratory Status: Respiratory Rate WNL, Airway Patent, O2 Saturation Stable - CARDIOVASCULAR CV Status: Pulse Rate WNL, Blood Pressure Stable - GASTROINTESTINAL GI Status: No Symptoms - POST OP HYDRATION Hydration Status: Adequate & Stable
[2018-04-12] MEDS ORDERED: Dicyclomine 10 MG Cap PO ONE (10:53)
[2018-04-12] MEDS ORDERED: Simethicone 80 MG Tab.Chew PO PRN (10:53)
--- NOTE | 2018-04-12 11:05 | PCM48HPAN ---
Post Anesthesia Note - EVALUATION WITHIN 48HRS OF ANESTHETIC Vital Signs in Normal Range: Yes Patient Participated in Evaluation: Yes Respiratory Function Stable: Yes Airway Patent: Yes Cardiovascular Function Stable: Yes Hydration Status Stable: Yes Pain Control Satisfactory: Yes Nausea and Vomiting Control Satisfactory: Yes Mental Status Recovered: Yes Resp Rate: 11
--- NOTE | 2018-04-12 13:05 | OR ---
SURGEON: KSENIA PETERSON MD DATE OF PROCEDURE: 04/12/2018 PREOPERATIVE DIAGNOSES: 1. Helicobacter pylori infection. 2. Colitis. POSTOPERATIVE DIAGNOSES: 1. Gastritis and duodenitis. 2. Hepatic flexure polyp. 3. Sigmoid colon polyp. 4. Diverticulosis. PROCEDURES PERFORMED: Diagnostic esophagogastroduodenoscopy and colonoscopy. ANESTHESIA: MAC. INSTRUMENT USED: Olympus endoscope and colonoscope. EXTENT OF EXAM: To the second portion of duodenum, to the cecum. PREPARATION: Good. LIMITATIONS: None. INDICATION FOR EXAMINATION: The patient is a 57-year-old male, who was recently admitted to the hospital. He was diagnosed with an H. pylori infection and colitis of the descending colon. The patient has been treated for H. pylori infection and his colitis. We discussed the need for a diagnostic EGD and colonoscopy. I explained the procedures, the expected perioperative course, and risks including bleeding, infection, or damage to surrounding structures including perforation. The patient verbalized understanding and wishes to proceed. PROCEDURE IN DETAIL: The patient was brought into the endoscopy suite and placed in the left lateral decubitus position. A time-out was completed verifying the patient's name, age, date of , allergies, and procedure to be performed. Monitored anesthesia care was induced. A bite block was placed in the patient's mouth and continuous oxygen was provided via nasal cannula throughout the procedure. After adequate sedation was achieved, a well lubricated endoscope was placed in the patient's mouth and advanced under direct visualization to the second portion of duodenum. This appeared normal and a photograph was taken. The scope was then fully withdrawn while examining the color, texture, anatomy, and integrity of the mucosa of the upper GI tract. The first portion of the patient's duodenum had inflammation consistent with duodenitis. There were no duodenal ulcers. The scope was brought into the stomach and a photograph was taken of the pylorus and GE junction. Both appeared normal. The patient had some superficial inflammation along the antrum. Biopsies were taken of gastric antrum, body, and fundus and sent for H. pylori testing and histologic review. The scope was brought into the distal esophagus and a photograph was taken. The GE junction appeared normal. There was no evidence of any reflux, esophagitis, or ulceration. The remainder of the esophageal mucosa was free of pathology. The scope was removed and this portion of procedure was terminated. A digital rectal exam was performed, this exam was normal. A well lubricated colonoscope was inserted in the rectum and advanced under direct visualization to the level of the cecum. The cecum was identified by both visual and anatomic landmarks. A photograph was taken of the cecal cap. I was unable to retroflex the scope within the cecum due to looping of the scope more proximally. The scope was then fully withdrawn while examining the color, texture, anatomy, and integrity of the mucosa from the cecum to the anal canal. The patient had a 2 to 3 mm pedunculated polyp at the hepatic flexure. This was removed using a cold biopsy forceps and sent to pathology labeled as a hepatic flexure polyp. The patient had a tortuous sigmoid colon with a moderate amount of diverticula throughout. A 1 to 2 mm sessile polyp was noted within the sigmoid colon and this was removed using a cold biopsy forceps. The scope was then brought into the rectum and retroflexed to allow visualization of the anal canal opening. This appeared normal and a photograph was taken. The scope was then straightened out and removed from the patient. The cecum to anus time was 11 minutes. The patient tolerated the procedure well was taken to PACU in stable condition. ENDOSCOPIC DIAGNOSES: 1. Gastritis and duodenitis. 2. Hepatic flexure polyp. 3. Sigmoid colon polyp. 4. Diverticulosis. RECOMMENDATIONS: Will have the patient begin pantoprazole 40 mg daily today. Follow up on the biopsy results from the gastric mucosa and a colonic polyps in clinic in 2 weeks. ALLEN SEGURA /[id number] LIZBETH
== END 2018-04-12 11:15 | disposition home or self-care (01) ==
LOC: MW.SDS 08:18
PROVIDERS: ATTEND Surgery
DX: K29.50 Unspecified chronic gastritis without bleeding (principal); K29.80 Duodenitis without bleeding; D12.3 Benign neoplasm of transverse colon; K63.5 Polyp of colon; K57.30 Diverticulosis of large intestine without perforation or abscess without bleeding; K21.9 Gastro-esophageal reflux disease without esophagitis; E78.00 Pure hypercholesterolemia, unspecified; Z87.891 Personal history of nicotine dependence
CPT/HCPCS: 43239; 45380; 88305; 88312; J2250; J2704; J3010; J7120

== ENCOUNTER 2023-05-11 10:19 | Day surgery (SDC) | payer BC ==
[~2023-05-11 10:19] MED LIST changes: +Sodium Chloride 0.9% 20 ML SDV IV PRN; +propofoL 50 ML ONE
== END 2023-05-11 11:50 | disposition home or self-care (01) ==
LOC: MW.SDS 10:19
PROVIDERS: ATTEND Surgery
DX: Z12.11 Encounter for screening for malignant neoplasm of colon (principal); D12.3 Benign neoplasm of transverse colon; K57.30 Diverticulosis of large intestine without perforation or abscess without bleeding; R73.09 Other abnormal glucose; M19.049 Primary osteoarthritis, unspecified hand; E78.00 Pure hypercholesterolemia, unspecified; L98.9 Disorder of the skin and subcutaneous tissue, unspecified; Z79.82 Long term (current) use of aspirin; Z79.899 Other long term (current) drug therapy; Z86.010 Personal history of colon polyps
CPT/HCPCS: 45380; J2704; J7120